=== PATIENT | female | born 1995 | race Caucasian/White ===

== ENCOUNTER 2019-12-29 07:00 | Inpatient (IN) | payer OTHER ==
[2019-12-29] MEDS ORDERED: AMPICILLIN SODIUM 2 GM VIAL ONE (08:58)
[2019-12-29] MEDS: ELECTROLYTE-148 SOLN 1,000 ML IV SCH (09:00)
[2019-12-29] MEDS ORDERED: AMPICILLIN - 2 GM in SODIUM CHLORIDE 100 ML IVPB ONE (09:00)
[2019-12-29 09:23] LABS: BASO % 0.3 % (0-2.0); HEMATOCRIT 41.3 % (32.4-45.2); HEMOGLOBIN 13.8 GM/dL (10.7-15.3); MCH 31.3 pg (25.7-33.7); MCHC 33.3 g/dl (32.0-36.0); MEAN CELL VOLUME 93.9 fl (80-96); MEAN PLT VOLUME 8.7 fl (7.5-11.1); MONO % 6.3 % (3.8-10.2); NEUT % 72.4 % (42.8-82.8); PLATELET COUNT 231 K/MM3 (134-434); RDW 14.6 % (11.6-15.6); WHITE BLOOD COUNT 11.4 K/mm3 (4.0-10.0)
[2019-12-29 09:32] LABS: INR 0.85 (0.83-1.09)
[2019-12-29 09:35] LABS: ACTIVATED PTT 27.6 SECONDS (25.2-36.5)
[2019-12-29 09:46] VITALS: BMI 32.8
[2019-12-29 09:53] LABS: BLOOD UREA NITROGEN 11.1 mg/dL (7-18); CALCIUM 8.6 mg/dL (8.5-10.1); CREATININE 0.7 mg/dL (0.55-1.3)
[2019-12-29 10:02] LABS: EPI CELLS 4 /uL (0-25.1); HYALINE CASTS 1 /uL (0-3.1); URINE APPEARANCE CLEAR; URINE BACTERIA 157 /uL (0-1359); URINE BILIRUBIN NEGATIVE (NEGATIVE); URINE COLOR YELLOW; URINE GLUCOSE (UA) NEGATIVE (NEGATIVE); URINE KETONE NEGATIVE (NEGATIVE); URINE LEUK ESTERASE NEGATIVE (NEGATIVE); URINE NITRITE NEGATIVE (NEGATIVE); URINE PROTEIN NEGATIVE (NEGATIVE); URINE RBC 440 /uL (0-23.9); URINE UROBILINOGEN 0.2 mg/dL (0.2-1.0); URINE WBC 18 /uL (0-25.8)
--- NOTE | 2019-12-29 10:13 | PD.OB.PROG ---
Past Medical History - Primary Care Physician PCP:: Ej Delarosa Documenting Provider Type: Laborist - Admission Chief Complaint: ctx - Nursing Documentation Maternal Triage Index: Maternal Triage Index ( Priority 4, Non-urgent MFTI) Maternal Triage Index ( Priority 4, Non-urgent MFTI) Hemorrhage Risk Assessment: Risk Level Medium Risk High Level Risk Factors for None Hemorrhage Medium Level Risk Factors for Prior , uterine Hemorrhage Low Level Risk Factors for [place] P[place],No known bleeding,No history Hemorrhage of PPH Nursing Documentation Reviewed: Yes - Past Medical History EPIC AMBULATORY ANALYSTS: Denies/None Cardio/Vascular: Denies/None Pulmonary: Denies/None Gastrointestinal: Denies/None Hepatobiliary: Denies/None Renal/: Denies/None ...: 2 ...Para: 1 ...Term: 1 ...LMP: 04/10/19 ... Weeks Gestation by Dates: 37.4 ...EDC by Dates: 01/15/20 ...EDC by Sono: 01/13/20 Heme/Onc: Denies/None Infectious Disease: Denies/None Psych: Denies/None Musculoskeletal: Denies/None Rheumatology: Denies/None ENT: Denies/None Endocrine: Denies/None Dermatology: Denies/None - Past Surgical History Past Surgical History: Yes: - Smoking History Smoking history: Never smoked Have you smoked in the past 12 months: No - Alcohol/Substance Use Hx Alcohol Use: No Review of Systems - Review of Systems Constitutional: reports: No Symptoms Eyes: reports: No Symptoms HENT: reports: No Symptoms Neck: reports: No Symptoms Cardiovascular: reports: No Symptoms Respiratory: reports: No Symptoms Gastrointestinal: reports: No Symptoms Genitourinary: reports: No Symptoms Breasts: reports: No Symptoms Reported Musculoskeletal: reports: No Symptoms Integumentary: reports: No Symptoms Neurological: reports: No Symptoms Endocrine: reports: No Symptoms Hematology/Lymphatic: reports: No Symptoms Psychiatric: reports: No Symptoms Physical Exam - Obstetrical Vital Signs: Vital Signs Temperature 98.1 F 12/29/19 09:23 Pulse Rate 70 12/29/19 09:23 Respiratory Rate 12/29/19 09:23 Blood Pressure 132/80 12/29/19 09:23 O2 Sat by Pulse Oximetry (%) Constitutional: Yes: Well Nourished, No Distress, Calm Eyes: Yes: WNL, Conjunctiva Clear, EOM Intact HENT: Yes: WNL, Atraumatic, Normocephalic Neck: Yes: WNL, Supple, Trachea Midline Cardiovascular: Yes: WNL, Regular Rate and Rhythm Lungs: Clear to auscultation Breast(s): Yes: WNL - Abdominal Exam/OB Fundal Height: 38 Number of Fetuses: Single Presentation: Vertex Regularity: Irritability Intensity: Mild Heart Rate (range): 140 Heart Rate Location: [facility] Category: I Accelerations: Uniform - Vaginal Exam/OB Vaginal Exam Deferred: No Dilatation (cm): 1 Effacement (%): 50 Amniotic Membrane Status: Intact Presentation: Vertex/Position Station: -2 - Labs Lab Results: CBC, BMP 12/29/19 09:01 12/29/19 09:01 Problem List - Problems (1) Pelvic pressure in Code(s): O26.899 - OTH RELATED CONDITIONS, UNSPECIFIED TRIMESTER; R10.2 - PELVIC AND PERINEAL PAIN (2) with 37 weeks completed gestation Code(s): Z3A.37 - 37 WEEKS GESTATION OF (3) Previous section Code(s): Z98.891 - HISTORY OF UTERINE SCAR FROM PREVIOUS SURGERY Assessment/Plan Observe Poss. early labor. Walk, intermittemnt monitoring. Poss .
[2019-12-29] MEDS ORDERED: OXYTOCIN 30 UNITS in 0.9% NS 30 UNIT/500 ML INFUS.BAG IVPB SCH (10:15)
[2019-12-29] MEDS ORDERED: OXYTOCIN 30 UNITS in 0.9% NS 30 UNIT/500 ML INFUS.BAG IVPB ONE (10:18)
--- NOTE | 2019-12-29 10:18 | HP ---
Past Medical History - Primary Care Physician PCP:: Guero Omer - Admission Chief Complaint: contractions since 3 am. srom 8:30 am clear History of Present Illness: pt. c/o contractions and srom this am. spotting noted. +FM. pt. interested in . 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 no recent outbreaks. no prodromal symptoms. History Source: Family Member Limitations to Obtaining History: Language Barrier (pt. understands Barbadian but also prefers to use to say in Hungarian and respond for her) - Past Medical History ...: 2 ...Para: 1 ...Term: 1 ...LMP: 04/10/19 ... 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) - Past Surgical History Past Surgical History: Yes: Hx Myomectomy: No Hx Transabdominal Cerclage: No - Smoking History Smoking history: Never smoked Have you smoked in the past 12 months: No - Alcohol/Substance Use Hx Alcohol Use: No Home Medications - Allergies Allergies/Adverse Reactions: Allergies Allergy/AdvReac Type Severity Reaction Status Date / Time No Known Allergies Allergy Verified 12/28/19 11:07 - Home Medications Home Medications: Ambulatory Orders Pnv No.95/Ferrous Fum/Folic AC [ Caplet] 1 tab PO DAILY 12/28/19 Valtrex 500 mg PO DAILY 12/29/19 Review of Systems Findings/Remarks: see HPI Physical Exam - Maternity Vital Signs: Vital Signs Temperature 98.1 F 12/29/19 09:23 Pulse Rate 70 12/29/19 09:23 Respiratory Rate 20 12/29/19 09:23 Blood Pressure 132/80 12/29/19 09:23 O2 Sat by Pulse Oximetry (%) Constitutional: Yes: Well Nourished, No Distress, Calm Cardiovascular: Yes: WNL Lungs: Clear to auscultation - Abdominal Exam/OB Number of Fetuses: Single Contractions: Yes Regularity: Irregular Intensity: Mild/Mod Monitor Mode: External Heart Rate (range): 135 Category: I Accelerations: Uniform Decelerations: None - Vaginal Exam/OB Dilatation (cm): 1-2 Amniotic Membrane Status: Ruptured (examined by laborist this am ~8:00 (prior to srom). perineum inspected by laborist and later by me as well: no lesions seen) Presentation: Vertex/Position (as per laborist on admit exam) - Labs Lab Results: CBC, BMP 12/29/19 09:01 12/29/19 09:01 O pos rubella immune varicella immune hbsag neg hiv neg quantiferon neg gc neg chl neg gbs pos Hemorrhage Risk Assessment - Risk Factors Medium Risk Factors: Yes: Prior , uterine surgery,or multiple laparotomies Risk Score: 1 Risk Level: Medium Risk Assessment/Plan IUP at term in labor pt. desires pt. and family has had multiple prior d/w Dr. Delarosa (case d/w her this am) risks and benefits reviewed again at this time (including uterine rupture and possible associated morbidity and mortality). consent obtained. GBS + abx prophylaxis started now due to srom also d/w pt. augmentation in contractions don't increase spontaneously. continue close monitoring.
[2019-12-29] MEDS ORDERED: CITRIC ACID/SODIUM CITRATE 30 ML UNIT-DOSE CUP PO ONE (12:20)
--- NOTE | 2019-12-29 12:20 | PN ---
Progress Note (short form) - Note Progress Note: pt. feeling stronger uc's vss - af fhr: 135 , cat 1 toco: uc's not registering well. ~ q 4 min ve: 2-3 / 70 / -2 a/p iup at term in labor, tolac pt. states wants options reviewed and epidural offered , but pt. and partner state would rather do consent obtained. prepare for
[2019-12-29] MEDS ORDERED: AMPICILLIN SODIUM 1 GM VIAL ONE (12:50)
[2019-12-29] MEDS ORDERED: AMPICILLIN - 1 GM in SODIUM CHLORIDE 100 ML IVPB SCH (13:00)
[2019-12-29] MEDS ORDERED: morphine SULFATE/PF 0.5 MG/ML (2cc Syringe - QUVA) ONE (13:21)
[2019-12-29] MEDS ORDERED: ceFAZolin SODIUM 1 GM VIAL ONE (13:38)
[2019-12-29] MEDS ORDERED: OXYTOCIN 10 UNITS/ML VIAL ONE ×2 (13:45→14:27)
--- NOTE | 2019-12-29 14:22 | PN ---
Progress Note (short form) - Note Progress Note: I assisted Dr. Olmos at rep. c/section for the entirety of the case. Problem List - Problems (1) Pelvic pressure in Code(s): O26.899 - OTH RELATED CONDITIONS, UNSPECIFIED TRIMESTER; R10.2 - PELVIC AND PERINEAL PAIN (2) with 37 weeks completed gestation Code(s): Z3A.37 - 37 WEEKS GESTATION OF (3) Previous section Code(s): Z98.891 - HISTORY OF UTERINE SCAR FROM PREVIOUS SURGERY
[2019-12-29] MEDS ORDERED: METHYLERGONOVINE MALEATE 0.2 MG/1 ML AMP IM PRN (14:35)
[2019-12-29] MEDS ORDERED: ONDANSETRON 4 MG/2 ML VIAL IVPUSH PRN (14:41)
[2019-12-29] MEDS ORDERED: morphine SULFATE/PF 0.5 MG/ML (2cc Syringe - QUVA) EP ONE (14:41)
--- NOTE | 2019-12-29 14:41 | OP ---
Operative Note - Note: Operative Date: 12/29/19 Pre-Operative Diagnosis: term , previous csection, declined Operation: repeat LTCS Findings: live baby boy APGARS 9,9 Normal uterus, tubes and ovaries b/l Post-Operative Diagnosis: Same as Pre-op (job # [id number]) Surgeon: Guero Omer Electric Plater: Sandeep Patterson Anesthesiologist/CONSTRUCTION CONTROLLER: Ronak Morris Anesthesia: Spinal Estimated Blood Loss (mls): 650 Operative Report Dictated: Yes
[2019-12-29] MEDS ORDERED: ONDANSETRON 4 MG/2 ML VIAL ONE (15:07)
[2019-12-29] MEDS: OXYTOCIN 20 UNITS in 0.9% NS 20 UNIT/1,000 ML INFUS.BAG IV SCH (15:12)
[2019-12-29] MEDS ORDERED: OXYTOCIN 20 UNITS in 0.9% NS 20 UNIT/1,000 ML INFUS.BAG IV ONE (15:26)
[2019-12-29] MEDS: CEFAZOLIN 1 GM/D5W 1 GM/50 ML BAG IVPB SCH (19:01)
--- NOTE | 2019-12-29 21:13 | OP ---
DATE OF OPERATION: 12/29/2019 PROCEDURE: Repeat low transverse section. PREOPERATIVE DIAGNOSIS: Term with a history of previous section, declined vaginal after section and elects for section. SURGEON: Guero Omer MD CURER ACID DRUM: Sandeep Patterson MD ANESTHESIOLOGIST: Ronak Morris MD ANESTHESIA: Spinal. ESTIMATED BLOOD LOSS: 650 mL. SPECIMEN: Cord blood obtained. DESCRIPTION OF PROCEDURE: Patient was taken to the operating room and placed on table in dorsal supine position. After spinal anesthesia was administered and found to be adequate, the patient was prepped and draped in the usual sterile manner, and the Pfannenstiel skin incision was made using the scalpel. This was done through the old scar and carried through to the level of the underlying fascia using the electrocautery. The underlying fascia was then incised in midline with the electrocautery, and this incision was extended bilaterally. The fascia was tented up and dissected away from underlying rectus muscles. Rectus muscles in midline. Peritoneum tented up and entered sharply with Metzenbaum scissors. Good visualization of bladder and bowel. The incision was extended superiorly and inferiorly. The bladder flap was then inserted. The lower uterine segment bladder flap was created with the Metzenbaum scissors, and then, the lower uterine segment was incised in a transverse fashion with the scalpel after it was elevated away using the Allis clamps. The lower segment was noted to be thin. The incision was extended bilaterally digitally, and then, the 's head was delivered atraumatically. The nose and mouth were suctioned. The remainder of the was delivered. The cord was clamped and cut, and the was handed off to the awaiting staffing consultant. The placenta was expressed, and then, the uterus was exteriorized, cleared of any clots and debris. The lower uterine segment was closed with running locking 0 Biosyn suture with the first layer and the second layer in a Lembert fashion, same suture material. The hemostasis was noted to be good. The abdomen and pelvis were irrigated and cleared of any clots and debris, and the uterus was returned to the abdomen. Again, uterus was inspected. Hemostasis noted to be good, and then, all sponge, lap, needle, and instruments were removed from the abdomen and pelvis after the gutters were cleared of clots and debris. The peritoneal layer was then closed with a running 2-0 chromic suture, followed by approximation of the muscle layer with 2-0 chromic in a horizontal mattress suture. The fascial layer was closed with a running No. 1 Vicryl suture, and then, the subcutaneous fat was approximated with 2-0 plain gut. The skin closure was done with asmita, followed by placement of a sterile dressing. The uterus was expressed of any clots at the end of the procedure. The sponge, lap, needle, and instrument counts were correct x2. Patient received IV antibiotics preoperatively. Patient tolerated the procedure well and was transferred to the recovery room in stable condition. There were no complications. GUERO OMER MD [id number]
[2019-12-30] MEDS ORDERED: ACETAMINOPHEN 1000 MG/100 ML VIAL (NON FORMULARY) IVPB PRN (00:39)
[2019-12-30] MEDS: OXYTOCIN 20 UNITS in 0.9% NS 20 UNIT/1,000 ML INFUS.BAG IV SCH ×2 (01:01→22:19)
[2019-12-30] MEDS: CEFAZOLIN 1 GM/D5W 1 GM/50 ML BAG IVPB SCH ×2 (01:33→09:10)
[2019-12-30 08:55] LABS: BASO % 0.1 % (0-2.0); HEMOGLOBIN 12.5 GM/dL (10.7-15.3); LYMPH % 13.4 % (8-40); MCH 30.7 pg (25.7-33.7); MCHC 32.8 g/dl (32.0-36.0); MEAN CELL VOLUME 93.3 fl (80-96); MEAN PLT VOLUME 8.4 fl (7.5-11.1); MONO % 7.7 % (3.8-10.2); NEUT % 78.8 % (42.8-82.8); PLATELET COUNT 172 K/MM3 (134-434); RBC 4.08 M/mm3 (3.60-5.2); RDW 14.6 % (11.6-15.6)
--- NOTE | 2019-12-30 09:47 | PN ---
Progress Note (short form) - Note Progress Note: 24 yo S/P yesterday only has complaints of incisional tenderness. abdomen soft + BS afebrile no calf tenderness Mod Lochia plan OOB discontinue IVF switch to oral meds regular diet.
[2019-12-30] MEDS ORDERED: DIPHTH,PERTUSS(ACELL),TET 0.5 ML DISP.SYRIN IM ONE (10:00)
[2019-12-30] MEDS: ACETAMINOPHEN 325 MG TABLET (FP) PO PRN ×3 (12:07→22:10)
[2019-12-30] MEDS: SIMETHICONE 80 MG TAB.CHEW (FP) PO PRN ×2 (12:08→22:24)
[2019-12-30] MEDS: IBUPROFEN 600 MG TABLET (FP) PO PRN ×3 (12:08→22:10)
[2019-12-30] MEDS ORDERED: BISACODYL 10 MG SUPP.RECT RC PRN (14:35)
--- NOTE | 2019-12-30 17:24 | PN ---
Progress Note (short form) - Note Progress Note: Anesthesia POD#1 S/P under spinal and DM VSS,pain is mild, no N/V, legs fully recovered. Cha Chambers MD.
[2019-12-30] MEDS: ELECTROLYTE-148 SOLN 1,000 ML IV SCH (22:19)
[2019-12-31] MEDS: oxyCODONE HCL 5 MG TABLET PO PRN ×3 (00:38→22:17)
[2019-12-31] MEDS: IBUPROFEN 600 MG TABLET (FP) PO PRN ×3 (10:13→22:17)
--- NOTE | 2019-12-31 11:38 | PN ---
Post Progress Note - Subjective Subjective: Patient c/o mild incisional pain, otherwise feels well. Denies headache, blurry vision, CP, SOB, epigastric pain. Post Day: 2 Type of Delivery: Repeat C/S Vital Signs: Vital Signs Temperature 99.1 F 12/31/19 10:00 Pulse Rate 80 12/31/19 10:00 Respiratory Rate 18 12/31/19 10:00 Blood Pressure 144/81 12/31/19 10:00 O2 Sat by Pulse Oximetry (%) 97 12/31/19 10:00 Breast Exam: Yes: Soft Uterus: Yes: Fundus Firm Incision: Yes: [place] intact Abdomen/GI: Yes: Abdomen soft, Tolerating PO Lochia: Yes: Rubra Lochia, amount: Small Extremities: Yes: Calves non-tender Activity: Ambulating - Labs Labs: CBC WBC 12.0 K/mm3 (4.0-10.0) H 12/30/19 07:55 RBC 4.08 M/mm3 (3.60-5.2) 12/30/19 07:55 Hgb 12.5 GM/dL (10.7-15.3) 12/30/19 07:55 Hct 38.0 % (32.4-45.2) 12/30/19 07:55 MCV 93.3 fl (80-96) 12/30/19 07:55 MCH 30.7 pg (25.7-33.7) 12/30/19 07:55 MCHC 32.8 g/dl (32.0-36.0) 12/30/19 07:55 RDW 14.6 % (11.6-15.6) 12/30/19 07:55 Plt Count 172 K/MM3 (134-434) D 12/30/19 07:55 MPV 8.4 fl (7.5-11.1) 12/30/19 07:55 Absolute Neuts (auto) 9.5 K/mm3 (1.5-8.0) H 12/30/19 07:55 Neutrophils % 78.8 % (42.8-82.8) 12/30/19 07:55 Lymphocytes % 13.4 % (8-40) D 12/30/19 07:55 Monocytes % 7.7 % (3.8-10.2) 12/30/19 07:55 Eosinophils % 0.0 % (0-4.5) 12/30/19 07:55 Basophils % 0.1 % (0-2.0) 12/30/19 07:55 Nucleated RBC % 0 % (0-0) 12/30/19 07:55 Assessment/Plan POD #2, hemodynamically stable Mildly elevated BPs - 140s/80s Monitor vital signs Preeclampsia precautions Pain management Ambulation encouraged Regular diet Consider discharge home in AM
[2019-12-31] MEDS: SIMETHICONE 80 MG TAB.CHEW (FP) PO PRN ×2 (14:48→22:16)
[2019-12-31] MEDS: ACETAMINOPHEN 325 MG TABLET (FP) PO PRN ×2 (14:48→22:16)
[2020-01-01 00:54] VITALS: PULSE 77
[2020-01-01] MEDS: IBUPROFEN 600 MG TABLET (FP) PO PRN (07:40)
[2020-01-01] MEDS: ACETAMINOPHEN 325 MG TABLET (FP) PO PRN ×2 (07:41→12:16)
[2020-01-01] MEDS: oxyCODONE HCL 5 MG TABLET PO PRN (07:41)
[2020-01-01] MEDS: SIMETHICONE 80 MG TAB.CHEW (FP) PO PRN ×2 (07:42→12:17)
[2020-01-01 12:33] VITALS: BP 125/70; TEMP 98.2
--- NOTE | 2020-01-01 14:12 | DS ---
Physical Exam-SCANNING COORDINATOR Vital Signs: Vital Signs Temperature 98.2 F 01/01/20 10:00 Pulse Rate 77 12/31/19 22:00 Respiratory Rate 18 01/01/20 10:00 Blood Pressure 125/70 01/01/20 10:00 O2 Sat by Pulse Oximetry (%) 97 01/01/20 10:00 Constitutional: Yes: Calm Cardiovascular: Yes: WNL Respiratory: Yes: WNL Gastrointestinal: Yes: Normal Bowel Sounds, Soft Breast(s): Yes: WNL Musculoskeletal: Yes: WNL Extremities: Yes: WNL Edema: No Wound/Incision: Yes: Clean/Dry, Luis Intact Labs: CBC, BMP 12/30/19 07:55 12/29/19 09:01 Delivery - Delivery Type of Anesthesia: Spinal Episiotomy/Laceration: None EBL (cc): 650 Delivery, Single - Stages of Labor Date 1st Stage Initiatied: 12/29/19 Time 1st Stage Initiated: 06:30 Date of Delivery: 12/29/19 Time of Delivery: 13:51 Time Placenta Delivered: 13:53 - Condition of Asphalt Surface Heater Operator/Shank Sorter Present: Yes Name: Radha Magana Gender: Male Weight: 3.317 kg Position: Right, OT Total Hours ROM (Hrs/Mins): 6hrs 21 min - 1 Minute Total Score: 9 5 Minutes Total Score: 9 - Feeding Plan Initial Plan: Elected not to breastfeed exclusively throughout hospitalization Remarks - Remarks Remarks: PO #3 passing flatus and had BM tolerating diet discharge today Discharge Summary Problems reviewed: Yes Reason For Visit: ADMISSION OF LABOR Procedures: Principal: Plan of Treatment: follow up friday in office for staple removal Condition: Good - Instructions Diet, Activity, Other Instructions: regular Disposition: HOME - Home Medications Comprehensive Discharge Medication List: Ambulatory Orders Pnv No.95/Ferrous Fum/Folic AC [ Caplet] 1 tab PO DAILY 12/28/19 Valtrex 500 mg PO DAILY 12/29/19
--- NOTE | 2020-01-03 19:16 | PATH ---
Surgical Pathology Report Patient Name: MAITE GARRETT Med. Rec. #: [id number] /Age/Gender: 1995 (Age: 24) / F Account: [id number] Location: [facility] OBS/PATRIOT MISSILE AIR DEFENSE ARTILLERY Taken: 12/29/2019 Received: 12/30/2019 Reported: 01/03/2020 Physicians: Guero Omer M.D. Specimen(s) Received PLACENTA Clinical History , previous x1 Final Diagnosis PLACENTA, SECTION: 500 G THIRD TRIMESTER PLACENTA WITH TRIVASCULAR UMBILICAL CORD AND PLACENTAL MEMBRANES WITH MILD PATCHY CHRONIC DECIDUITIS. SEE COMMENT. Comment: Presence of plasma cells raise the possibility of chronic endometritis. Suggest clinical correlation. Electronically Signed Angela Miranda M.D. Gross Description The specimen is received fresh labeled placenta and is a 500 gram, 13.0 x 14.5 x 3.5 cm. placenta with attached membranes and umbilical cord. The attached membranes are arango, translucent with focal opacities and insert marginally. The umbilical cord measures 35 cm. in length and averages 1.1 cm. in diameter. The cord inserts eccentrically, 5 cm. to the nearest margin. No true knots or strictures are identified. Cut surface of the umbilical cord reveals 3 vessels. The surface is han-blue with minimal fibrin deposition and appropriate caliber vessels. The maternal surface is red-brown with focal defects. Sectioning reveals red-brown, spongy parenchyma. No lesions are identified. Commercial Leasing Agent sections are submitted in three cassettes as follows: 1- membrane rolls and umbilical cord; 2-3- full thickness sections of placenta. 12/31/2019 [facility]/31/2019
== END 2020-01-01 15:30 | disposition home or self-care (01) | DRG 540 ==
LOC: JDEL 07:00 → JLDR 08:30 → J3W 16:00 → UNDODISIN 12-31 14:30
PROVIDERS: ADMIT Obstetrics & Gynecology; ATTEND Obstetrics & Gynecology
PROC: 10D00Z1 Extraction of Products of Conception, Low, Open Approach (ICD-10-PCS; principal; 2019-12-29)
DX: O82 Encounter for cesarean delivery without indication (principal); O34.219 Maternal care for unspecified type scar from previous cesarean delivery; O42.02 Full-term premature rupture of membranes, onset of labor within 24 hours of rupture; Z3A.49 Greater than 42 weeks gestation of pregnancy; O99.824 Streptococcus B carrier state complicating childbirth; Z3A.37 37 weeks gestation of pregnancy; Z37.0 Single live birth; O26.899 Other specified pregnancy related conditions, unspecified trimester; R10.2 Pelvic and perineal pain; Z86.19 Personal history of other infectious and parasitic diseases
CPT/HCPCS: 36415; 80048; 81003; 85025; 85610; 85730; 86780; 86850; 86900; 86901; 87086; 87389; 88307-TC; 90715; J0131; U0003